=== PATIENT | female | born 1990 | race Caucasian/White ===

== ENCOUNTER → 2017-09-27 | Outpatient (CLI) | payer OTHER ==
[~2017-09-27] MED LIST: IBUP800 PO; MULVITMINE; NUVO RING; ONDA4 PO; PROC10 PO; PROM25 PO; RXONDA4ODT MM; TRIA80TC; Verotin-Gr Cap1 EACH PO; [UNRECOGNIZED DRUG - OTHER]
== END ==
LOC: LAB SHORT 12:00
DX: J34.0 Abscess, furuncle and carbuncle of nose (principal)
CPT/HCPCS: 87070; 87077; 87147; 87186